=== PATIENT | female | born 1985 | race Caucasian/White ===

== ENCOUNTER 2017-11-29 09:38 | Emergency (ER) | payer OTHER ==
[~2017-11-29] VITALS: Ht 170.2 cm; Wt 72.6 kg
[2017-11-29] MEDS ORDERED: IBUPROFEN 600 MG TAB PO STA (10:00)
--- NOTE | 2017-11-29 11:04 | Diagnostic Imaging Report ---
Exam: Left shoulder 2 views History: Pain Comparison: None. Findings: No fracture or malalignment. Joint spaces preserved. No abnormal soft tissue calcification or soft tissue defect. Impression: No acute osseous abnormality Signed by: Dr. Contreras Diamond M.D. on 11/29/2017 11:01 AM
[2017-11-29] MEDS ORDERED: CLONIDINE HCL 0.1 MG TAB PO ONE (11:30)
--- NOTE | 2017-11-29 12:42 | Diagnostic Imaging Report ---
ADDENDUM #1 IMPRESSION: 1. No cervical spine abnormalities. Patent canal and foramina with no significant nerve root impingement. 2. Cannot exclude ligament, spinal cord and or vascular abnormalities on the basis of this examination. Signed by: DR Glenn Hutchins M.D. on 12/11/2017 10:28 AM ORIGINAL REPORT History: Rule out pinched nerve Comparison studies: None Technique: Axial images were obtained through the cervical region.. Coronal and sagittal images reconstructed from the axial data.. Intravenous contrast: None Dose modulation, iterative reconstruction, and/or weight based adjustment of the mA/kV was utilized to reduce the radiation dose to as low as reasonably achievable. Findings: Fractures: None. Soft tissues: No gross abnormalities. Atlantoaxial articulation: Intact. Alignment: Normal lordosis. No scoliosis. Cervicomedullary junction: No abnormalities. The foramen magnum is patent. Vertebrae: No infection or neoplasm. Degenerative changes: None. IMPRESSION: 1. No cervical spine abnormalities. 2. Cannot exclude ligament, spinal cord and or vascular abnormalities on the basis of this examination. Signed by: DR Glenn Hutchins M.D. on 11/29/2017 12:39 PM
[2017-11-29] MEDS ORDERED: PREDNISONE 20 MG TAB PO ONE (13:15)
[2017-11-29] MEDS ORDERED: TRAMADOL HCL 50 MG TAB PO ONE (13:15)
== END 2017-11-29 13:35 | disposition home or self-care (01) ==
LOC: FSED 09:38
DX: M54.2 Cervicalgia (principal); M25.512 Pain in left shoulder; M79.622 Pain in left upper arm; S16.1XXA Strain of muscle, fascia and tendon at neck level, initial encounter; M54.12 Radiculopathy, cervical region; F17.210 Nicotine dependence, cigarettes, uncomplicated
CPT/HCPCS: 72125; 99284; J7512